=== PATIENT | male | born 2000 | race Caucasian/White ===

== ENCOUNTER 2019-09-08 20:40 | Inpatient (IN) | payer OTHER ==
[~2019-09-08] VITALS: Ht 177.8 cm; Wt 76.5 kg
--- NOTE | 2019-09-08 20:58 | NUR ---
REPORT OF PT FROM [facility] AND ASSUMING CARE OF PT AT THIS TIME.
--- NOTE | 2019-09-08 21:35 | NUR ---
PT BACK FROM XRAY WITH ICE PACK AND ELEVATION OF LLE.
[2019-09-08] MEDS ORDERED: MORPHINE SULFATE 4 MG/ML, 1ML ONE (22:08)
[2019-09-08] MEDS ORDERED: ONDANSETRON 2MG/ML, 2ML ONE (22:11)
--- NOTE | 2019-09-08 22:24 | NUR ---
TP RN: PT HAS [facility] INSURANCE. [facility] CALLED. PT DENIED BY SHARMILA NICOLASGOLD N[employer] GR[employer]ER.
[2019-09-08] MEDS ORDERED: morphine SULFATE 10 MG/ML, 1ML IVPush ONE (22:30)
[2019-09-08] MEDS ORDERED: ACETAMINOPHEN 325 MG TABLET PO PRN (23:00)
[2019-09-08] MEDS ORDERED: BISACODYL 10 MG SUPP PR PRN (23:00)
[2019-09-08] MEDS ORDERED: ONDANSETRON 2MG/ML, 2ML IVPush PRN (23:00)
[2019-09-08] MEDS: SODIUM CHLORIDE FLUSH 10ML SYR IVF SCH (23:00)
[2019-09-08] MEDS: HEPARIN 5,000 UNITS/ML, 1ML SQ SCH (23:52)
[2019-09-09 00:09] VITALS: BP 125/67
[2019-09-09] MEDS: morphine SULFATE 10 MG/ML, 1ML IVPush PRN ×5 (01:19→22:53)
[2019-09-09] MEDS ORDERED: HYDROmorphone 1 MG/ML, 1ML INJ ONE ×2 (01:43→15:58)
[2019-09-09] MEDS ORDERED: HYDROmorphone 1 MG/ML, 1ML INJ IV ONE (02:00)
[2019-09-09 06:18] LABS: BASOPHILS # (AUTO) 0.02 x10^3/uL (0-0.3); BASOPHILS % (AUTO) 0 % (0-1); EOSINOPHILS # (AUTO) 0.01 x10^3/uL (0-0.8); EOSINOPHILS % (AUTO) 0 % (1-7); LYMPHOCYTES # (AUTO) 1.45 x10^3/uL (1-6.1); LYMPHOCYTES % (AUTO) 12 % (22-44); MD NO; MEAN CORPUSCULAR HEMOGLOBIN 30.7 pg (27.5-34.5); MEAN CORPUSCULAR HGB CONC 33.7 g/dL (33.2-36.2); MEAN PLATELET VOLUME 8.1 fL (7.4-10.4); MONOCYTES # (AUTO) 0.61 x10^3/uL (0-1.4); MONOCYTES % (AUTO) 5 % (2-9); NEUTROPHILS # (AUTO) 9.81 x10^3/uL (1.8-8.0); NEUTROPHILS % (AUTO) 83 % (42-75); PLATELET COUNT 217 x10^3/uL (130-400); RED BLOOD COUNT 4.75 x10^6/uL (4.38-5.82)
[2019-09-09 06:30] LABS: ANION GAP 6 mmol/L (5-15); CALCIUM 9.4 mg/dL (8.5-10.1); CHLORIDE 105 mmol/L (98-107)
[2019-09-09 06:32] LABS: CREATININE 1.04 mg/dL (0.7-1.3)
[2019-09-09 07:14] VITALS: BP 135/90
[2019-09-09] MEDS: SODIUM CHLORIDE FLUSH 10ML SYR IVF SCH ×2 (07:56→22:04)
[2019-09-09] MEDS: HEPARIN 5,000 UNITS/ML, 1ML SQ SCH ×2 (07:56→22:04)
[2019-09-09] MEDS: SENNA/DOCUSATE TABLET PO SCH (07:57)
[2019-09-09] MEDS ORDERED: NEOSTIGMINE 1 MG/ML, 10ML ONE (11:33)
[2019-09-09] MEDS ORDERED: GLYCOPYRROLATE 0.2MG/1ML, 5ML ONE (11:33)
[2019-09-09] MEDS ORDERED: ROCURONIUM 10MG/ML,5ML ONE (11:33)
[2019-09-09] MEDS ORDERED: PROPOFOL 10 MG/ML, 20ML ONE (11:33)
[2019-09-09 12:32] VITALS: BP 150/84
[2019-09-09] MEDS ORDERED: MEPERIDINE/PF 25MG/ML,1ML IVPush PRN (13:00)
[2019-09-09] MEDS ORDERED: OXYcodone 5 MG/5 ML ORAL.SOL UDC PO PRN (13:00)
[2019-09-09] MEDS ORDERED: MORPHINE SULFATE 4 MG/ML, 1ML IVPush PRN (13:00)
[2019-09-09] MEDS ORDERED: FENTANYL PF 100 MCG/2ML IV PRN (13:00)
[2019-09-09] MEDS ORDERED: HYDROmorphone 2 MG/ML, 1ML IVPush PRN (13:00)
[2019-09-09] MEDS ORDERED: ONDANSETRON 2MG/ML, 2ML IV PRN (13:00)
[2019-09-09] MEDS ORDERED: ACETAMINOPHEN 325 MG TABLET PO PRN (13:00)
[2019-09-09] MEDS ORDERED: CLINDAMYCIN 150 MG/ML, 6ML ONE (13:01)
[2019-09-09] MEDS ORDERED: MIDAZOLAM 1 MG/ML, 2ML ONE (13:02)
[2019-09-09] MEDS ORDERED: FENTANYL PF 250 MCG/5ML ONE (13:02)
[2019-09-09] MEDS ORDERED: BUPIVACAINE/PF-EPI 0.5% 1:200K ONE (14:48)
[2019-09-09] MEDS ORDERED: BUPIVACAINE/PF-EPI 0.5% 1:200K INFIL ONE (15:00)
[2019-09-09] MEDS ORDERED: MEPERIDINE/PF 25MG/ML,1ML ONE (15:23)
[2019-09-09] MEDS ORDERED: OXYcodone 5 MG/5 ML ORAL.SOL UDC ONE (15:28)
[2019-09-09] MEDS ORDERED: ONDANSETRON 2MG/ML, 2ML ONE (15:28)
[2019-09-09] MEDS: OXYcodone/APAP 5/325MG TABLET PO PRN ×2 (19:48→23:53)
[2019-09-09 20:02] VITALS: BP 134/87
[2019-09-09] MEDS: CLINDAMYCIN PMX 600MG/50ML 50 ML IV SCH (22:04)
[2019-09-09 23:55] VITALS: BP 128/77
[2019-09-10] MEDS: morphine SULFATE 10 MG/ML, 1ML IVPush PRN ×4 (02:50→14:41)
[2019-09-10 03:30] VITALS: BP 126/72
[2019-09-10] MEDS: OXYcodone/APAP 5/325MG TABLET PO PRN ×5 (04:24→21:30)
[2019-09-10 05:30] LABS: ANION GAP 6 mmol/L (5-15); BASOPHILS # (AUTO) 0.02 x10^3/uL (0-0.3); BASOPHILS % (AUTO) 0 % (0-1); CHLORIDE 102 mmol/L (98-107); CREATININE 1.04 mg/dL (0.7-1.3); EOSINOPHILS # (AUTO) 0.17 x10^3/uL (0-0.8); EOSINOPHILS % (AUTO) 2 % (1-7); LYMPHOCYTES % (AUTO) 17 % (22-44); MD NO; MEAN CORPUSCULAR HEMOGLOBIN 30.1 pg (27.5-34.5); MEAN CORPUSCULAR HGB CONC 33.3 g/dL (33.2-36.2); MEAN CORPUSCULAR VOLUME 90.3 fL (81-97); MEAN PLATELET VOLUME 8.3 fL (7.4-10.4); MONOCYTES # (AUTO) 0.75 x10^3/uL (0-1.4); MONOCYTES % (AUTO) 8 % (2-9); NEUTROPHILS # (AUTO) 6.79 x10^3/uL (1.8-8.0); NEUTROPHILS % (AUTO) 73 % (42-75); PLATELET COUNT 198 x10^3/uL (130-400); RED BLOOD COUNT 4.61 x10^6/uL (4.38-5.82); RED CELL DISTRIBUTION WIDTH 13.1 % (9.4-14.8)
[2019-09-10] MEDS: CLINDAMYCIN PMX 600MG/50ML 50 ML IV SCH (05:37)
[2019-09-10] MEDS: HEPARIN 5,000 UNITS/ML, 1ML SQ SCH ×3 (05:37→21:54)
[2019-09-10 07:21] VITALS: BP 138/86
[2019-09-10] MEDS: SODIUM CHLORIDE FLUSH 10ML SYR IVF SCH ×2 (08:22→21:30)
[2019-09-10] MEDS: SENNA/DOCUSATE TABLET PO SCH (08:22)
[2019-09-10] MEDS: POLYETHYLENE GLYCOL 17 GM PACKET PO PRN (12:22)
[2019-09-10 13:55] VITALS: BP 144/88
[2019-09-10 18:20] VITALS: BP 123/78
[2019-09-11 00:19] VITALS: BP 134/84
[2019-09-11] MEDS: OXYcodone/APAP 5/325MG TABLET PO PRN ×6 (01:35→22:45)
[2019-09-11] MEDS: HEPARIN 5,000 UNITS/ML, 1ML SQ SCH ×3 (05:37→21:56)
[2019-09-11 06:09] LABS: BASOPHILS # (AUTO) 0.03 x10^3/uL (0-0.3); BASOPHILS % (AUTO) 0 % (0-1); EOSINOPHILS # (AUTO) 0.19 x10^3/uL (0-0.8); EOSINOPHILS % (AUTO) 3 % (1-7); LYMPHOCYTES # (AUTO) 2.01 x10^3/uL (1-6.1); LYMPHOCYTES % (AUTO) 26 % (22-44); MD NO; MEAN CORPUSCULAR HEMOGLOBIN 30.4 pg (27.5-34.5); MEAN CORPUSCULAR HGB CONC 33.6 g/dL (33.2-36.2); MEAN CORPUSCULAR VOLUME 90.6 fL (81-97); MEAN PLATELET VOLUME 8.3 fL (7.4-10.4); MONOCYTES # (AUTO) 0.57 x10^3/uL (0-1.4); MONOCYTES % (AUTO) 8 % (2-9); NEUTROPHILS # (AUTO) 4.82 x10^3/uL (1.8-8.0); NEUTROPHILS % (AUTO) 63 % (42-75); PLATELET COUNT 208 x10^3/uL (130-400); RED BLOOD COUNT 4.81 x10^6/uL (4.38-5.82)
[2019-09-11 06:20] LABS: ANION GAP 5 mmol/L (5-15); CALCIUM 9.5 mg/dL (8.5-10.1); CHLORIDE 102 mmol/L (98-107)
[2019-09-11 06:21] LABS: CREATININE 1.06 mg/dL (0.7-1.3)
[2019-09-11 07:28] VITALS: BP 133/74
[2019-09-11] MEDS: SODIUM CHLORIDE FLUSH 10ML SYR IVF SCH ×2 (08:16→21:00)
[2019-09-11] MEDS: SENNA/DOCUSATE TABLET PO SCH (08:16)
[2019-09-11] MEDS: POLYETHYLENE GLYCOL 17 GM PACKET PO PRN (08:16)
[2019-09-11 12:51] VITALS: BP 137/88
[2019-09-11 19:18] VITALS: BP 143/80
[2019-09-12 01:55] VITALS: BP 129/79
[2019-09-12] MEDS: OXYcodone/APAP 5/325MG TABLET PO PRN ×4 (02:52→22:54)
[2019-09-12 05:21] LABS: BASOPHILS # (AUTO) 0.03 x10^3/uL (0-0.3); BASOPHILS % (AUTO) 1 % (0-1); EOSINOPHILS # (AUTO) 0.23 x10^3/uL (0-0.8); EOSINOPHILS % (AUTO) 4 % (1-7); LYMPHOCYTES # (AUTO) 2.22 x10^3/uL (1-6.1); LYMPHOCYTES % (AUTO) 36 % (22-44); MD NO; MEAN CORPUSCULAR HEMOGLOBIN 30.6 pg (27.5-34.5); MEAN CORPUSCULAR HGB CONC 33.9 g/dL (33.2-36.2); MEAN CORPUSCULAR VOLUME 90.3 fL (81-97); MEAN PLATELET VOLUME 7.9 fL (7.4-10.4); MONOCYTES # (AUTO) 0.63 x10^3/uL (0-1.4); MONOCYTES % (AUTO) 10 % (2-9); NEUTROPHILS # (AUTO) 3.07 x10^3/uL (1.8-8.0); NEUTROPHILS % (AUTO) 50 % (42-75); PLATELET COUNT 209 x10^3/uL (130-400); RED BLOOD COUNT 4.75 x10^6/uL (4.38-5.82); RED CELL DISTRIBUTION WIDTH 12.8 % (9.4-14.8)
[2019-09-12 05:25] LABS: ANION GAP 5 mmol/L (5-15); CALCIUM 9.4 mg/dL (8.5-10.1); CHLORIDE 102 mmol/L (98-107)
[2019-09-12] MEDS: HEPARIN 5,000 UNITS/ML, 1ML SQ SCH (06:00)
[2019-09-12 07:20] VITALS: BP 125/90
[2019-09-12] MEDS ORDERED: BUPIVACAINE/PF-EPI 0.5% 1:200K ONE (07:36)
[2019-09-12] MEDS ORDERED: BUPIVACAINE/PF-EPI 0.25% 1:200K ONE (07:36)
[2019-09-12] MEDS: SENNA/DOCUSATE TABLET PO SCH (08:39)
[2019-09-12] MEDS: SODIUM CHLORIDE FLUSH 10ML SYR IVF SCH ×2 (08:39→23:24)
[2019-09-12] MEDS ORDERED: CHLORHEXIDINE 15 ML UDC MM STA (09:06)
[2019-09-12] MEDS ORDERED: MIDAZOLAM 1 MG/ML, 2ML ONE (09:52)
[2019-09-12] MEDS ORDERED: FENTANYL PF 250 MCG/5ML ONE (09:54)
[2019-09-12] MEDS ORDERED: ROCURONIUM 10 MG/ML,10ML ONE (10:18)
[2019-09-12] MEDS ORDERED: SUCCINYLCHOLINE 20 MG/ML, 10ML ONE (10:18)
[2019-09-12] MEDS ORDERED: CLINDAMYCIN 150 MG/ML, 6ML ONE (10:29)
[2019-09-12] MEDS ORDERED: LIDOCAINE-MPF 2% ,5ML ONE (11:25)
[2019-09-12] MEDS ORDERED: DEXAMETHASONE 4 MG/ML, 1ML ONE (11:25)
[2019-09-12] MEDS ORDERED: BUPIVACAINE/PF 0.5% ONE (11:25)
[2019-09-12] MEDS ORDERED: PROPOFOL 10 MG/ML, 20ML ONE (11:25)
[2019-09-12] MEDS ORDERED: ONDANSETRON 2MG/ML, 2ML ONE (11:25)
[2019-09-12] MEDS ORDERED: ACETAMINOPHEN 325 MG TABLET PO PRN (11:30)
[2019-09-12] MEDS ORDERED: MEPERIDINE/PF 25MG/ML,1ML IVPush PRN (11:30)
[2019-09-12] MEDS ORDERED: FENTANYL PF 100 MCG/2ML IV PRN (11:30)
[2019-09-12] MEDS ORDERED: PROMETHAZINE 25 MG/ML, 1ML IV PRN (11:30)
[2019-09-12] MEDS ORDERED: MIDAZOLAM 1 MG/ML, 2ML IV PRN (11:30)
[2019-09-12] MEDS ORDERED: OXYcodone 5 MG/5 ML ORAL.SOL UDC PO PRN (11:30)
[2019-09-12] MEDS ORDERED: FENTANYL PF 100 MCG/2ML ONE ×2 (12:13→13:09)
[2019-09-12] MEDS ORDERED: KETOROLAC 30 MG/1 ML IM SCH (12:30)
[2019-09-12] MEDS ORDERED: MEPERIDINE/PF 25MG/ML,1ML ONE (12:34)
[2019-09-12] MEDS ORDERED: HYDROmorphone 1 MG/ML, 1ML INJ ONE (12:46)
[2019-09-12] MEDS ORDERED: OXYcodone 5 MG/5 ML ORAL.SOL UDC ONE (12:46)
[2019-09-12] MEDS: HYDROmorphone 2 MG/ML, 1ML IVPush PRN ×2 (12:48→13:08)
[2019-09-12 14:05] VITALS: BP 152/108
[2019-09-12] MEDS: KETOROLAC 30 MG/1 ML IV SCH ×2 (16:12→23:23)
[2019-09-12] MEDS ORDERED: CLINDAMYCIN PMX 600MG/50ML 50 ML IVPB SCH (18:00)
[2019-09-12] MEDS: CLINDAMYCIN PMX 600MG/50ML 50 ML IVPB SCH (18:04)
[2019-09-12 18:51] VITALS: BP 126/79
[2019-09-13 00:07] VITALS: BP 131/61
[2019-09-13] MEDS: morphine SULFATE 10 MG/ML, 1ML IVPush PRN (00:42)
[2019-09-13] MEDS: CLINDAMYCIN PMX 600MG/50ML 50 ML IVPB SCH ×2 (02:15→10:39)
[2019-09-13] MEDS: OXYcodone/APAP 5/325MG TABLET PO PRN ×4 (03:11→14:41)
[2019-09-13 03:32] VITALS: BP 120/77
[2019-09-13 05:01] LABS: BASOPHILS # (AUTO) 0.02 x10^3/uL (0-0.3); BASOPHILS % (AUTO) 0 % (0-1); EOSINOPHILS # (AUTO) 0.01 x10^3/uL (0-0.8); EOSINOPHILS % (AUTO) 0 % (1-7); LYMPHOCYTES # (AUTO) 1.18 x10^3/uL (1-6.1); LYMPHOCYTES % (AUTO) 14 % (22-44); MD NO; MEAN CORPUSCULAR HEMOGLOBIN 30.3 pg (27.5-34.5); MEAN CORPUSCULAR HGB CONC 33.4 g/dL (33.2-36.2); MEAN CORPUSCULAR VOLUME 90.9 fL (81-97); MEAN PLATELET VOLUME 7.8 fL (7.4-10.4); MONOCYTES # (AUTO) 0.89 x10^3/uL (0-1.4); MONOCYTES % (AUTO) 11 % (2-9); NEUTROPHILS # (AUTO) 6.15 x10^3/uL (1.8-8.0); NEUTROPHILS % (AUTO) 75 % (42-75); PLATELET COUNT 242 x10^3/uL (130-400); RED BLOOD COUNT 4.06 x10^6/uL (4.38-5.82); RED CELL DISTRIBUTION WIDTH 12.9 % (9.4-14.8)
[2019-09-13 05:04] LABS: ANION GAP 6 mmol/L (5-15); CALCIUM 8.6 mg/dL (8.5-10.1); CHLORIDE 101 mmol/L (98-107)
[2019-09-13] MEDS ORDERED: ENOXAPARIN 40 MG/0.4 ML SQ SCH (06:00)
[2019-09-13 06:57] VITALS: BP 126/84
[2019-09-13] MEDS: SENNA/DOCUSATE TABLET PO SCH (08:01)
[2019-09-13] MEDS: KETOROLAC 30 MG/1 ML IV SCH (08:01)
[2019-09-13] MEDS: SODIUM CHLORIDE FLUSH 10ML SYR IVF SCH (08:02)
[2019-09-13] MEDS ORDERED: ASPI81TA45 PO (09:50)
[2019-09-13] MEDS ORDERED: OXYC-307 PO (09:51)
[2019-09-13 13:00] VITALS: BP 128/76
[2019-09-13] MEDS ORDERED: SENN-193 PO (14:50)
[2019-09-13 17:10] VITALS: BP 122/76
== END 2019-09-13 17:45 | disposition home or self-care (01) | DRG 493 ==
LOC: ED 20:57 → EDIP 22:25 → 4NE 23:25
PROVIDERS: ATTEND Hospitalist
PROC: 2W3RX1Z Immobilization of Left Lower Leg using Splint (ICD-10-PCS; principal; 2019-09-08)
PROC: 0QSH35Z Reposition Left Tibia with External Fixation Device, Percutaneous Approach (ICD-10-PCS; 2019-09-09)
PROC: 0QSH04Z Reposition Left Tibia with Internal Fixation Device, Open Approach (ICD-10-PCS; 2019-09-12)
PROC: 0QPHX5Z Removal of External Fixation Device from Left Tibia, External Approach (ICD-10-PCS; 2019-09-12)
DX: S82.242A Displaced spiral fracture of shaft of left tibia, initial encounter for closed fracture (principal); E87.1 Hypo-osmolality and hyponatremia; M25.00 Hemarthrosis, unspecified joint; T78.2XXA Anaphylactic shock, unspecified, initial encounter; S82.142A Displaced bicondylar fracture of left tibia, initial encounter for closed fracture; S82.492A Other fracture of shaft of left fibula, initial encounter for closed fracture; F17.210 Nicotine dependence, cigarettes, uncomplicated; T36.1X5A Adverse effect of cephalosporins and other beta-lactam antibiotics, initial encounter; V00.131A Fall from skateboard, initial encounter; Y99.8 Other external cause status; V00.188A Other accident on other rolling-type pedestrian conveyance, initial encounter; Y93.51 Activity, roller skating (inline) and skateboarding; Y93.59 Activity, other involving other sports and athletics played individually; Z88.0 Allergy status to penicillin; Z88.8 Allergy status to other drugs, medicaments and biological substances
CPT/HCPCS: 36415; 73552; 73590; 76000; 99285; J3490; S0020; S0077; 80048; 85025; C1713; G0378; J1100; J1170; J1644; J1650; J1885; J2250; J2405; J2704; J2710; J3010; J0330; J2175; J2270